=== PATIENT | female | born 1985 | race American Indian/Alaskan Native ===

== ENCOUNTER 2019-09-06 09:10 | Emergency (ER) | payer MEDICAID ==
[2019-09-06 09:48] VITALS: BP 116/76; PULSE 96
[2019-09-06] MEDS ORDERED: Sodium Chloride 0.9% 10 ML Syringe FLUSH PRN (10:22)
[2019-09-06] MEDS ORDERED: Diphtheria,Pertussis(Acell),Tetanus Vaccine 0.5 ML SDV IM ONE (10:25)
--- NOTE | 2019-09-06 10:28 | EDM.PDOC ---
ED HPI GENERAL MEDICAL PROBLEM - General Chief Complaint: Lower Extremity Injury/Pain Stated Complaint: R FOOT INJURY Time Seen by Provider: 09/06/19 10:22 Source of Information: Reports: Patient History Limitations: Reports: No Limitations - History of Present Illness INITIAL COMMENTS - FREE TEXT/NARRATIVE: Patient was fishing in [place] on 09/03/19 while wearing flip flops. She fell into the water, twisting her right ankle, and scraping her right leg and ankle on concrete in the process. She developed mild right lateral ankle pain and swelling immediately after the fall. Then on 09/05/19 developed increased swelling, redness and pain to the right lateral ankle and right lower leg. No prior h/o Diabetes. Denies fevers or chills. Last Tetanus booster unknown. Onset Date: 09/03/19 Location: Reports: Lower Extremity, Right Quality: Reports: Ache Severity: Moderate Improves with: Reports: None Worsens with: Reports: Movement (and weight bearing) Associated Symptoms: Reports: No Other Symptoms right ankle/foot/yoder' Pain Score (Numeric/FACES): 9 - Related Data Allergies Allergy/AdvReac Type Severity Reaction Status Date / Time No Known Allergies Allergy Verified 08/19/14 07:53 Home Meds: Home Meds Amoxicillin/Potassium Clav [Augmentin 875-125 Tablet] 1 each PO BID #20 tablet 09/06/19 [Rx] Past Medical History - Past Health History Medical/Surgical History: Denies Medical/Surgical History Social & Family History - Family History Family Medical History: Noncontributory - Tobacco Use Smoking Status *Q: Never Smoker - Caffeine Use Caffeine Use: Reports: Soda - Recreational Drug Use Recreational Drug Use: No Review of Systems - Review of Systems Review Of Systems: Comprehensive ROS is negative, except as noted in HPI. ED EXAM, GENERAL - Physical Exam Exam: See Below Exam Limited By: No Limitations General Appearance: Alert, WD/WN, No Apparent Distress Nose: Normal Inspection Throat/Mouth: No Airway Compromise Head: Atraumatic, Normocephalic Neck: Full Range of Motion Respiratory/Chest: No Respiratory Distress Peripheral Pulses: 2+: Dorsalis Pedis (R) Extremities: Other (right lateral malleolus swelling and tenderness) Neurological: Alert, Normal Cognition Psychiatric: Normal Affect, Normal Mood Skin Exam: Other (Draining bulla right lateral ankle with surrounding erythema and warmth. Erythema and warmth to right anterior lower leg) Course - Vital Signs Last Recorded V/S: Last Vital Signs Temp 36.4 C 09/06/19 09:10 Pulse 96 09/06/19 09:10 Resp 14 09/06/19 09:10 BP 116/76 09/06/19 09:10 Pulse Ox 98 09/06/19 09:10 - Orders/Labs/Meds Orders: Active Orders 24 hr Category Date Time Status Vaccines to be Administered [RC] PER UNIT ROUTINE Care 09/06/19 10:25 Active Foot Comp Min 3V Rt [CR] Stat Exams 09/06/19 09:59 Taken Tibia Fibula Rt [CR] Stat Exams 09/06/19 09:44 Taken CULTURE ROUTINE + SMEAR [RM] Stat Lab 09/06/19 10:15 Received Sodium Chloride 0.9% [Saline Flush] Med 09/06/19 10:22 Active 10 ml FLUSH ASDIRECTED PRN Vancomycin/Dextrose 5%-Water [Vancomycin 1 GM/200 ML in Med 09/06/19 11:00 Active D5W] 200 ml IV ONETIME Saline Lock Insert [OM.PC] Routine Oth 09/06/19 10:22 Ordered Medication Orders Vancomycin HCl (Vancomycin 1 Gm/200 Ml In D5w) 200 mls @ 200 mls/hr IV ONETIME ONE Stop: 09/06/19 11:59 Last Admin: 09/06/19 10:57 Dose: 200 mls/hr Sodium Chloride (Saline Flush) 10 ml FLUSH ASDIRECTED PRN PRN Reason: Keep Vein Open Labs: Laboratory Tests 09/06/19 09/06/19 Range/Units 10:36 10:36 WBC 11.2 (4.5-12.0) X10-3/uL RBC 4.50 (3.23-5.20) x10(6)uL Hgb 12.5 (11.5-15.5) g/dL Hct 38.7 D (30.0-51.3) % MCV 85.9 (80-96) fL MCH 27.8 (27.7-33.6) pg MCHC 32.4 (32.2-35.4) g/dL RDW 16.6 H (11.5-15.5) % Plt Count 277 (125-369) X10(3)uL MPV 7.0 L (7.4-10.4) fL Add Manual Diff Yes Neutrophils % (Manual) 83 H (46-82) % Lymphocytes % (Manual) 13 (13-37) % Monocytes % (Manual) 4 (4-12) % Anisocytosis Few Sodium 136 (135-145) mmol/L Potassium 3.9 (3.5-5.3) mmol/L Chloride 102 (100-110) mmol/L Carbon Dioxide 21 (21-32) mmol/L BUN 7 (7-18) mg/dL Creatinine 0.6 (0.55-1.02) mg/dL Est Cr Clr Drug Dosing 109.29 mL/min Estimated GFR (MDRD) > 60 (>60) BUN/Creatinine Ratio 11.7 (9-20) Glucose 116 (80-116) mg/dL Calcium 8.4 L (8.6-10.2) mg/dL Meds: Medications Generic Name Dose Route Start Last Admin Trade Name Freq PRN Reason Stop Dose Admin Vancomycin HCl 200 mls @ 200 mls/hr 09/06/19 11:00 09/06/19 10:57 Vancomycin 1 Gm/200 Ml In D5w IV 09/06/19 11:59 200 mls/hr ONETIME ONE Administration Sodium Chloride 10 ml 09/06/19 10:22 Saline Flush FLUSH ASDIRECTED PRN Keep Vein Open Discontinued Medications Generic Name Dose Route Start Last Admin Trade Name Freq PRN Reason Stop Dose Admin Amoxicillin/Clavulanate Potassium 1 tab 09/06/19 11:04 Augmentin 875 Mg/125 Mg PO 09/06/19 11:05 ONETIME ONE Diphtheria/Tetanus/Acell Pertussis 0.5 ml 09/06/19 10:25 09/06/19 10:56 Adacel IM 09/06/19 10:26 0.5 ml .ONCE ONE Administration Ibuprofen 600 mg 09/06/19 10:43 09/06/19 10:56 Motrin PO 09/06/19 10:44 600 mg ONETIME ONE Administration - Radiology Interpretation Free Text/Narrative:: Right Tib-Fib and Foot Xray: No fracture or dislocation, no radiopaque foreign body or subcutaneous gas. (ED provider interpretation) Departure - Departure Time of Disposition: 11:37 Disposition: Home, Self-Care 01 Condition: Good Clinical Impression: Right ankle sprain Qualifiers: Encounter type: initial encounter Involved ligament of ankle: unspecified ligament Qualified Code(s): S93.401A - Sprain of unspecified ligament of right ankle, initial encounter Cellulitis Qualifiers: Site of cellulitis: extremity Site of cellulitis of extremity: lower extremity Laterality: right Qualified Code(s): L03.115 - Cellulitis of right lower limb - Discharge Information *PRESCRIPTION DRUG MONITORING PROGRAM REVIEWED*: No *COPY OF PRESCRIPTION DRUG MONITORING REPORT IN PATIENT MITA: Not Applicable Prescriptions: Amoxicillin/Potassium Clav [Augmentin 875-125 Tablet] 1 each PO BID #20 tablet Instructions: Crutch Use, Adult, [id number], Cellulitis, Adult, [id number] Referrals: [place] Brown PROTE[facility] CHEMIST [Primary Care Provider] - 2 Days Forms: ED Department Discharge Additional Instructions: Fill the Augmentin prescription at [facility] and take as directed. You may also take OTC Ibuprofen as needed for pain. Weight bear as tolerated. Follow up with your primary physician in 2 days. Return to the ER if symptoms worsen. Sepsis Event Note - Evaluation Sepsis Screening Result: No Definite Risk - Focused Exam Vital Signs: Vital Signs Temp Pulse Resp BP Pulse Ox 09/06/19 09:10 36.4 C 96 14 116/76 98 Date Exam was Performed: 09/06/19 Time Exam was Performed: 11:35 - My Orders Last 24 Hours: My Active Orders 09/06/19 09:44 Tibia Fibula Rt [CR] Stat 09/06/19 09:59 Foot Comp Min 3V Rt [CR] Stat 09/06/19 10:15 CULTURE ROUTINE + SMEAR [RM] Stat 09/06/19 10:22 Sodium Chloride 0.9% [Saline Flush] 10 ml FLUSH ASDIRECTED PRN Saline Lock Insert [OM.PC] Routine 09/06/19 10:25 Vaccines to be Administered [RC] PER UNIT ROUTINE 09/06/19 11:00 Vancomycin/Dextrose 5%-Water [Vancomycin 1 GM/200 ML in D5W] 200 ml IV ONETIME - Assessment/Plan Last 24 Hours: My Active Orders 09/06/19 09:44 Tibia Fibula Rt [CR] Stat 09/06/19 09:59 Foot Comp Min 3V Rt [CR] Stat 09/06/19 10:15 CULTURE ROUTINE + SMEAR [RM] Stat 09/06/19 10:22 Sodium Chloride 0.9% [Saline Flush] 10 ml FLUSH ASDIRECTED PRN Saline Lock Insert [OM.PC] Routine 09/06/19 10:25 Vaccines to be Administered [RC] PER UNIT ROUTINE 09/06/19 11:00 Vancomycin/Dextrose 5%-Water [Vancomycin 1 GM/200 ML in D5W] 200 ml IV ONETIME
[2019-09-06] MEDS ORDERED: Ibuprofen 600 MG Tab PO ONE (10:43)
[2019-09-06] MEDS ORDERED: Vancomycin/Dextrose 5%-Water 200 ML IV ONE (11:00)
[2019-09-06] MEDS ORDERED: Amoxicillin/Clavulanate K 875-125 MG Tab PO ONE (11:04)
[2019-09-06] MEDS ORDERED: Bacitracin Oint 1 GM U/D Packet TOP ONE (11:36)
--- NOTE | 2019-09-06 11:41 | CR ---
INDICATION: Fall. Pain above ankle. RIGHT TIB/FIB: Frontal and lateral views of the right tibia and fibula reveal soft tissue swelling overlying the malleoli, especially the lateral. However, a fracture/dislocation or other significant bone or joint abnormality, was not identified. If occult bony abnormality is suspected clinically - if symptoms persist, re- examination in 10-14 days may be helpful. MTDD
--- NOTE | 2019-09-06 14:11 | CR ---
INDICATION: Fall, twisted, pain medially. RIGHT FOOT: Three views of the right foot revealed no evidence of a fracture, dislocation, or other significant appearing bone or joint abnormality. If symptoms persist - if occult fracture site is suspected clinically, re- examination in 10-14 days may be helpful. MTDD
== END 2019-09-06 12:17 | disposition home or self-care (01) ==
LOC: FB.ED 09:10
DX: S93.401A Sprain of unspecified ligament of right ankle, initial encounter (principal); L03.115 Cellulitis of right lower limb; Z23 Encounter for immunization; X50.1XXA Overexertion from prolonged static or awkward postures, initial encounter
CPT/HCPCS: 73590; 73630; 80048; 85025; 87070; 87077; 87205; 90471; 90715; 96365; 96366; 99284; A9270; J3370

== ENCOUNTER 2020-06-10 16:38 | Emergency (ER) | payer MEDICAID ==
[2020-06-10] MEDS ORDERED: Sodium Chloride 0.9% 10 ML Syringe FLUSH PRN (16:53)
[2020-06-10] MEDS ORDERED: Adenosine 6 MG/2 ML SDV IVPUSH ONE (16:56)
[2020-06-10] MEDS ORDERED: Sodium Chloride 0.9% 1,000 ML IV SCH (17:00)
[2020-06-10] MEDS ORDERED: Metoprolol Tartrate 25 MG Tab PO STA ×2 (17:09→18:00)
[2020-06-10] MEDS ORDERED: LORazepam 2 MG/ML SDV IVPUSH STA (17:09)
[2020-06-10 17:21] VITALS: PULSE 109
[2020-06-10 18:08] VITALS: BP 117/83
--- NOTE | 2020-06-10 18:27 | EDM.PDOC ---
ED HPI GENERAL MEDICAL PROBLEM - General Chief Complaint: Cardiovascular Problem Stated Complaint: SOB,HEART RACING Time Seen by Provider: 06/10/20 16:40 Source of Information: Reports: Patient History Limitations: Reports: No Limitations - History of Present Illness INITIAL COMMENTS - FREE TEXT/NARRATIVE: Patient presented to the ED because palpitations, dyspnea which started at about 4 pm. There is no N/V/D. there is no fever,chills or cough and cold symptoms. She mentioned that she has been under a lot of stress recently due to the of her boyfriend. Denies any recent alcohol or street drug use. - Related Data Allergies Allergy/AdvReac Type Severity Reaction Status Date / Time No Known Allergies Allergy Verified 06/10/20 16:55 Home Meds: Home Meds Amoxicillin/Potassium Clav [Augmentin 875-125 Tablet] 1 each PO BID #20 tablet 09/06/19 [Rx] Past Medical History - Past Health History Medical/Surgical History: Denies Medical/Surgical History Social & Family History - Family History Family Medical History: No Pertinent Family History - Caffeine Use Caffeine Use: Reports: Soda ED ROS GENERAL - Review of Systems Review Of Systems: See Below Constitutional: Reports: No Symptoms HEENT: Reports: No Symptoms Respiratory: Reports: No Symptoms Cardiovascular: Reports: Chest Pain, Palpitations Endocrine: Reports: No Symptoms GI/Abdominal: Reports: No Symptoms : Reports: No Symptoms Musculoskeletal: Reports: No Symptoms Skin: Reports: No Symptoms Neurological: Reports: No Symptoms Psychiatric: Reports: No Symptoms ED EXAM, GENERAL - Physical Exam Exam: See Below Exam Limited By: No Limitations General Appearance: Alert, No Apparent Distress Ears: Normal External Exam, Normal Canal Nose: Normal Inspection, Normal Mucosa, No Blood Throat/Mouth: Normal Inspection Head: Atraumatic, Normocephalic Neck: Normal Inspection, Supple, Non-Tender, Full Range of Motion Respiratory/Chest: No Respiratory Distress, Lungs Clear, Normal Breath Sounds, No Accessory Muscle Use, Chest Non-Tender Cardiovascular: Normal Peripheral Pulses, No Edema, No Gallop, Tachycardia GI/Abdominal: Normal Bowel Sounds, Soft, Non-Tender, No Organomegaly Back Exam: Normal Inspection, Full Range of Motion Extremities: Normal Inspection, Normal Range of Motion, Non-Tender Neurological: Alert, Oriented, CN II-XII Intact, Normal Cognition, Normal Gait Course - Vital Signs Text/Narrative:: Labs/EKG was discussed with patient Adenosine 6 mg IV x1 Metoprolol tartrate 25 mg po x2 doses Ativan 1 mg IV Last Recorded V/S: Last Vital Signs Temp 36.5 C 06/10/20 16:38 Pulse 109 H 06/10/20 18:08 Resp 24 H 06/10/20 16:38 BP 117/83 06/10/20 18:08 Pulse Ox 99 06/10/20 16:38 - Orders/Labs/Meds Orders: Active Orders 24 hr Category Date Time Status EKG Documentation Completion [RC] ASDIRECTED Care 06/10/20 17:11 Active Sodium Chloride 0.9% [Normal Saline] 1,000 ml Med 06/10/20 17:00 Active IV ASDIRECTED Sodium Chloride 0.9% [Saline Flush] Med 06/10/20 16:53 Active 10 ml FLUSH ASDIRECTED PRN Saline Lock Insert [OM.PC] Routine Oth 06/10/20 16:53 Ordered EKG 12 Lead [EK] Routine Ther 06/10/20 17:11 Ordered Medication Orders Sodium Chloride (Normal Saline) 1,000 mls @ 999 mls/hr IV ASDIRECTED ALEJANDRINA Last Admin: 06/10/20 16:55 Dose: 999 mls/hr Documented by: POP Sodium Chloride (Saline Flush) 10 ml FLUSH ASDIRECTED PRN PRN Reason: Keep Vein Open Last Admin: 06/10/20 17:00 Dose: 10 ml Documented by: KAVON Labs: Laboratory Tests 06/10/20 06/10/20 06/10/20 Range/Units 17:10 17:10 17:10 Sodium 142 (135-145) mmol/L Potassium 3.7 (3.5-5.3) mmol/L Chloride 106 (100-110) mmol/L Carbon Dioxide 21 (21-32) mmol/L BUN 7 (7-18) mg/dL Creatinine 0.8 (0.55-1.02) mg/dL Est Cr Clr Drug Dosing 84.76 mL/min Estimated GFR (MDRD) > 60 (>60) BUN/Creatinine Ratio 8.8 L (9-20) Glucose 161 H (80-116) mg/dL Calcium 8.1 L (8.6-10.2) mg/dL Magnesium 1.8 (1.8-2.5) mg/dL Total Bilirubin 0.7 (0.1-1.3) mg/dL AST 140 H (5-25) IU/L ALT 121 H (12-36) U/L Alkaline Phosphatase 114 H (56-112) IU/L Troponin I 4.2 (4.0-60.3) pg/mL NT-Pro-B Natriuret Pep 13 (<=125) pg/mL Total Protein 7.1 (6.0-8.0) g/dL Albumin 3.7 (3.5-5.2) g/dL Globulin 3.4 g/dL Albumin/Globulin Ratio 1.1 Meds: Medications Generic Name Dose Route Start Last Admin Trade Name Freq PRN Reason Stop Dose Admin Sodium Chloride 1,000 mls @ 999 mls/hr 06/10/20 17:00 06/10/20 16:55 Normal Saline IV 999 mls/hr ASDIRECTED ALEJANDRINA Administration Sodium Chloride 10 ml 06/10/20 16:53 06/10/20 17:00 Saline Flush FLUSH 10 ml ASDIRECTED PRN Administration Keep Vein Open Discontinued Medications Generic Name Dose Route Start Last Admin Trade Name Freq PRN Reason Stop Dose Admin Adenosine 6 mg 06/10/20 16:56 06/10/20 17:01 Adenocard IVPUSH 06/10/20 16:57 6 mg NOW ONE Administration Lorazepam 1 mg 06/10/20 17:09 06/10/20 17:23 Ativan IVPUSH 06/10/20 17:10 1 mg NOW STA Administration Metoprolol Tartrate 25 mg 06/10/20 17:09 06/10/20 17:20 Lopressor PO 06/10/20 17:10 25 mg NOW STA Administration Metoprolol Tartrate 25 mg 06/10/20 18:00 06/10/20 18:08 Lopressor PO 06/10/20 18:01 25 mg NOW STA Administration Departure - Departure Time of Disposition: 16:30 Disposition: Home, Self-Care 01 Condition: Good Clinical Impression: SVT (supraventricular tachycardia) Instructions: Supraventricular Tachycardia, Adult, [id number] Forms: ED Department Discharge Additional Instructions: Please read discharge instructions on SVT(supraventricular tachycardia) Rest foe the Night Take your alprazolam as directed Sepsis Event Note (ED) - Evaluation Sepsis Screening Result: No Definite Risk - Focused Exam Vital Signs: Vital Signs Temp Pulse Pulse Resp BP BP Pulse Ox 06/10/20 18:08 109 H 117/83 06/10/20 17:20 109 H 124/75 06/10/20 16:38 36.5 C 175 H 24 H 112/59 L 99 - My Orders Last 24 Hours: My Active Orders 06/10/20 16:53 Sodium Chloride 0.9% [Saline Flush] 10 ml FLUSH ASDIRECTED PRN Saline Lock Insert [OM.PC] Routine 06/10/20 17:00 Sodium Chloride 0.9% [Normal Saline] 1,000 ml IV ASDIRECTED 06/10/20 17:11 EKG Documentation Completion [RC] ASDIRECTED EKG 12 Lead [EK] Routine - Assessment/Plan Last 24 Hours: My Active Orders 06/10/20 16:53 Sodium Chloride 0.9% [Saline Flush] 10 ml FLUSH ASDIRECTED PRN Saline Lock Insert [OM.PC] Routine 06/10/20 17:00 Sodium Chloride 0.9% [Normal Saline] 1,000 ml IV ASDIRECTED 06/10/20 17:11 EKG Documentation Completion [RC] ASDIRECTED EKG 12 Lead [EK] Routine
== END 2020-06-10 19:46 | disposition home or self-care (01) ==
LOC: FB.ED 16:38
DX: I47.1 Supraventricular tachycardia (principal)
CPT/HCPCS: 36415; 80053; 83735; 83880; 84484; 93005; 96374; 96375; 99285-25; A9270-GY; J0153; J2060; J7030

== ENCOUNTER 2020-08-25 22:50 | Emergency (ER) | payer MEDICAID ==
[2020-08-25] MEDS ORDERED: Adenosine 6 MG/2 ML SDV IVPUSH ONE (23:05)
[2020-08-25] MEDS ORDERED: Sodium Chloride 0.9% 1,000 ML IV ONE (23:23)
[2020-08-26] MEDS ORDERED: Potassium Chloride 20 MEQ Tab.ER PO ONE (00:19)
[2020-08-26] MEDS ORDERED: Atenolol 25 MG Tab PO ONE (02:45)
--- NOTE | 2020-08-26 02:53 | EDM.PDOC ---
ED HPI GENERAL MEDICAL PROBLEM - General Chief Complaint: Cardiovascular Problem Stated Complaint: RACING HEART Time Seen by Provider: 08/25/20 23:00 Source of Information: Reports: Patient History Limitations: Reports: No Limitations - History of Present Illness INITIAL COMMENTS - FREE TEXT/NARRATIVE: c/o SVT h/o SVT once 4m ago tonight was driving back to local area and had excess caffeine denies street drugs had palpitations with racing heart, made it difficult to drive no CP drove to ED no f/c/d, no cough/sob - Related Data Allergies Allergy/AdvReac Type Severity Reaction Status Date / Time No Known Allergies Allergy Verified 08/25/20 23:18 Home Meds: Home Meds ALPRAZolam [Xanax] 0.25 mg PO TID PRN 08/25/20 [History] busPIRone [Buspar] 10 mg PO BID 08/25/20 [History] atenoloL [Atenolol] 25 mg PO DAILY #30 tablet 08/26/20 [Rx] Past Medical History - Past Health History Medical/Surgical History: Denies Medical/Surgical History Cardiovascular History: Reports: Arrhythmia, Other (See Below) Other Cardiovascular History: SVT Genitourinary History: Reports: None ENDOCRINOLOGY NURSE History: Reports: Other ENDOCRINOLOGY NURSE History: [id number] Neurological History: Reports: Migraines Psychiatric History: Reports: Anxiety, Depression, Panic Attack - Infectious Disease History Infectious Disease History: Reports: Chicken Pox, Novel Coronavirus - Past Surgical History Female Surgical History: Reports: Section Other Female Surgeries/Procedures: CS x 2 Social & Family History - Family History Family Medical History: No Pertinent Family History - Tobacco Use Tobacco Use Status *Q: Current Some Day Tobacco User Years of Tobacco use: 15 Packs/Tins Daily: 0.2 - Caffeine Use Caffeine Use: Reports: Coffee, Energy Drinks, Soda - Alcohol Use Days Per Week of Alcohol Use: 1 Number of Drinks Per Day: 6 Total Drinks Per Week: 6 - Recreational Drug Use Recreational Drug Use: No ED ROS GENERAL - Review of Systems Review Of Systems: See Below Constitutional: Reports: No Symptoms HEENT: Reports: No Symptoms Respiratory: Reports: No Symptoms. Denies: Shortness of Breath Cardiovascular: Reports: Palpitations. Denies: Chest Pain Endocrine: Reports: No Symptoms GI/Abdominal: Reports: No Symptoms : Reports: No Symptoms Musculoskeletal: Reports: No Symptoms Skin: Reports: No Symptoms Neurological: Reports: No Symptoms Psychiatric: Reports: No Symptoms Hematologic/Lymphatic: Reports: No Symptoms Immunologic: Reports: No Symptoms ED EXAM, GENERAL - Physical Exam Exam: See Below Exam Limited By: No Limitations General Appearance: Alert, WD/WN, No Apparent Distress Nose: Normal Inspection Throat/Mouth: Normal Inspection Head: Atraumatic Neck: Normal Inspection, Supple, Non-Tender Respiratory/Chest: No Respiratory Distress, Lungs Clear, Chest Non-Tender Cardiovascular: Regular Rate, Rhythm, No Murmur, Tachycardia GI/Abdominal: Soft, Non-Tender Back Exam: Normal Inspection, Full Range of Motion Extremities: Normal Inspection, Normal Range of Motion, Non-Tender, No Pedal Edema Neurological: Alert, Oriented, CN II-XII Intact, Normal Cognition, No M otor/Sensory Deficits Psychiatric: Anxious Skin Exam: Warm, Dry, Intact, Normal Color, No Rash Lymphatic: No Adenopathy Course - Vital Signs Last Recorded V/S: Last Vital Signs Temp 36.5 C 08/25/20 22:50 Pulse 104 H 08/26/20 03:07 Resp 17 08/25/20 23:00 BP 119/72 08/26/20 03:07 Pulse Ox 95 08/25/20 23:00 - Orders/Labs/Meds Orders: Active Orders 24 hr Category Date Time Status EKG 12 Lead [EK] Routine Ther 08/25/20 23:05 Ordered Labs: Laboratory Tests 08/25/20 08/25/20 08/25/20 Range/Units 23:10 23:10 23:10 WBC 10.0 (3.0-10.3) x10-3/uL RBC 4.83 (3.60-5.20) x10(6)uL Hgb 14.2 (11.4-15.5) g/dL Hct 43.3 (34.2-48.2) % MCV 89.6 (76.7-100.5) fL MCH 29.4 (23.9-33.9) pg MCHC 32.8 (31.9-34.8) g/dL RDW 14.3 (12.3-16.5) % Plt Count 261 (151-488) x10(3)uL MPV 7.5 (7.1-12.4) fL Neut % (Auto) 58.4 (30.8-76.2) % Lymph % (Auto) 30.5 (18.4-52.1) % Hubbard % (Auto) 7.6 (4.4-15.7) % Eos % (Auto) 2.8 (0.6-8.1) % Baso % (Auto) 0.7 (0.2-1.5) % Neut # (Auto) 5.8 (1.5-6.3) x10-3/uL Lymph # (Auto) 3.0 (1.0-4.4) x10-3/uL Hubbard # (Auto) 0.8 (0.3-1.0) x10-3/uL Eos # (Auto) 0.3 (0.0-0.8) x10-3/uL Baso # (Auto) 0.1 (0.0-0.1) x10-3/uL Sodium 141 (135-145) mmol/L Potassium 3.1 L (3.5-5.3) mmol/L Chloride 103 (100-110) mmol/L Carbon Dioxide 23 (21-32) mmol/L BUN 5 L (7-18) mg/dL Creatinine 0.7 (0.55-1.02) mg/dL Est Cr Clr Drug Dosing TNP Estimated GFR (MDRD) > 60 (>60) BUN/Creatinine Ratio 7.1 L (9-20) Glucose 118 H (80-116) mg/dL Calcium 8.2 L (8.6-10.2) mg/dL Magnesium (1.8-2.5) mg/dL Total Bilirubin 0.5 (0.1-1.3) mg/dL AST 57 H D (5-25) IU/L ALT 61 H D (12-36) U/L Alkaline Phosphatase 112 (56-112) IU/L Troponin I 8.3 (4.0-60.3) pg/mL C-Reactive Protein < 0.2 L (0.5-0.9) mg/dL Total Protein 7.6 (6.0-8.0) g/dL Albumin 3.7 (3.5-5.2) g/dL Globulin 3.9 g/dL Albumin/Globulin Ratio 1.0 Urine Color (YELLOW) Urine Appearance (CLEAR) Urine pH (5.0-6.5) Ur Specific Dexter (1.010-1.025) Urine Protein (NEGATIVE) mg/dL Urine Glucose (UA) (NORMAL) mg/dL Urine Ketones (NEGATIVE) mg/dL Urine Occult Blood (NEGATIVE) Urine Nitrite (NEGATIVE) Urine Bilirubin (NEGATIVE) Urine Urobilinogen (NEGATIVE) mg/dL Ur Leukocyte Esterase (NEGATIVE) Urine RBC (0-5) Urine WBC (0-5) Ur Squamous Epith Cells (NS,R,O) Urine Bacteria (NS) Urine Opiates Screen (NEGATIVE) Ur Oxycodone Screen (NEGATIVE) Ur Propoxyphene Screen (NEGATIVE) Ur Barbituates Screen (NEGATIVE) Ur Tricyclics Screen (NEGATIVE) Ur Phencyclidine Scrn (NEGATIVE) Ur Amphetamine Screen (NEGATIVE) Urine MDMA Screen (NEGATIVE) U Benzodiazepines Scrn (NEGATIVE) U Cocaine Metab Screen (NEGATIVE) U Marijuana (THC) Screen (NEGATIVE) Group A Strep (PCR) (NOT DETECT) 08/26/20 08/26/20 08/26/20 Range/Units 00:25 01:20 01:20 WBC (3.0-10.3) x10-3/uL RBC (3.60-5.20) x10(6)uL Hgb (11.4-15.5) g/dL Hct (34.2-48.2) % MCV (76.7-100.5) fL MCH (23.9-33.9) pg MCHC (31.9-34.8) g/dL RDW (12.3-16.5) % Plt Count (151-488) x10(3)uL MPV (7.1-12.4) fL Neut % (Auto) (30.8-76.2) % Lymph % (Auto) (18.4-52.1) % Hubbard % (Auto) (4.4-15.7) % Eos % (Auto) (0.6-8.1) % Baso % (Auto) (0.2-1.5) % Neut # (Auto) (1.5-6.3) x10-3/uL Lymph # (Auto) (1.0-4.4) x10-3/uL Hubbard # (Auto) (0.3-1.0) x10-3/uL Eos # (Auto) (0.0-0.8) x10-3/uL Baso # (Auto) (0.0-0.1) x10-3/uL Sodium (135-145) mmol/L Potassium (3.5-5.3) mmol/L Chloride (100-110) mmol/L Carbon Dioxide (21-32) mmol/L BUN (7-18) mg/dL Creatinine (0.55-1.02) mg/dL Est Cr Clr Drug Dosing Estimated GFR (MDRD) (>60) BUN/Creatinine Ratio (9-20) Glucose (80-116) mg/dL Calcium (8.6-10.2) mg/dL Magnesium 1.9 (1.8-2.5) mg/dL Total Bilirubin (0.1-1.3) mg/dL AST (5-25) IU/L ALT (12-36) U/L Alkaline Phosphatase (56-112) IU/L Troponin I (4.0-60.3) pg/mL C-Reactive Protein (0.5-0.9) mg/dL Total Protein (6.0-8.0) g/dL Albumin (3.5-5.2) g/dL Globulin g/dL Albumin/Globulin Ratio Urine Color Red (YELLOW) Urine Appearance Slightly cloudy (CLEAR) Urine pH 6.0 (5.0-6.5) Ur Specific Dexter 1.020 (1.010-1.025) Urine Protein Trace (NEGATIVE) mg/dL Urine Glucose (UA) Normal (NORMAL) mg/dL Urine Ketones Negative (NEGATIVE) mg/dL Urine Occult Blood Large H (NEGATIVE) Urine Nitrite Negative (NEGATIVE) Urine Bilirubin Negative (NEGATIVE) Urine Urobilinogen Normal (NEGATIVE) mg/dL Ur Leukocyte Esterase Negative (NEGATIVE) Urine RBC 75-100 H (0-5) Urine WBC 0-5 (0-5) Ur Squamous Epith Cells Few H (NS,R,O) Urine Bacteria Few H (NS) Urine Opiates Screen Negative (NEGATIVE) Ur Oxycodone Screen Negative (NEGATIVE) Ur Propoxyphene Screen Negative (NEGATIVE) Ur Barbituates Screen Negative (NEGATIVE) Ur Tricyclics Screen Negative (NEGATIVE) Ur Phencyclidine Scrn Negative (NEGATIVE) Ur Amphetamine Screen Negative (NEGATIVE) Urine MDMA Screen Negative (NEGATIVE) U Benzodiazepines Scrn Negative (NEGATIVE) U Cocaine Metab Screen Negative (NEGATIVE) U Marijuana (THC) Screen Negative (NEGATIVE) Group A Strep (PCR) (NOT DETECT) 08/26/20 Range/Units 01:55 WBC (3.0-10.3) x10-3/uL RBC (3.60-5.20) x10(6)uL Hgb (11.4-15.5) g/dL Hct (34.2-48.2) % MCV (76.7-100.5) fL MCH (23.9-33.9) pg MCHC (31.9-34.8) g/dL RDW (12.3-16.5) % Plt Count (151-488) x10(3)uL MPV (7.1-12.4) fL Neut % (Auto) (30.8-76.2) % Lymph % (Auto) (18.4-52.1) % Hubbard % (Auto) (4.4-15.7) % Eos % (Auto) (0.6-8.1) % Baso % (Auto) (0.2-1.5) % Neut # (Auto) (1.5-6.3) x10-3/uL Lymph # (Auto) (1.0-4.4) x10-3/uL Hubbard # (Auto) (0.3-1.0) x10-3/uL Eos # (Auto) (0.0-0.8) x10-3/uL Baso # (Auto) (0.0-0.1) x10-3/uL Sodium (135-145) mmol/L Potassium (3.5-5.3) mmol/L Chloride (100-110) mmol/L Carbon Dioxide (21-32) mmol/L BUN (7-18) mg/dL Creatinine (0.55-1.02) mg/dL Est Cr Clr Drug Dosing Estimated GFR (MDRD) (>60) BUN/Creatinine Ratio (9-20) Glucose (80-116) mg/dL Calcium (8.6-10.2) mg/dL Magnesium (1.8-2.5) mg/dL Total Bilirubin (0.1-1.3) mg/dL AST (5-25) IU/L ALT (12-36) U/L Alkaline Phosphatase (56-112) IU/L Troponin I (4.0-60.3) pg/mL C-Reactive Protein (0.5-0.9) mg/dL Total Protein (6.0-8.0) g/dL Albumin (3.5-5.2) g/dL Globulin g/dL Albumin/Globulin Ratio Urine Color (YELLOW) Urine Appearance (CLEAR) Urine pH (5.0-6.5) Ur Specific Dexter (1.010-1.025) Urine Protein (NEGATIVE) mg/dL Urine Glucose (UA) (NORMAL) mg/dL Urine Ketones (NEGATIVE) mg/dL Urine Occult Blood (NEGATIVE) Urine Nitrite (NEGATIVE) Urine Bilirubin (NEGATIVE) Urine Urobilinogen (NEGATIVE) mg/dL Ur Leukocyte Esterase (NEGATIVE) Urine RBC (0-5) Urine WBC (0-5) Ur Squamous Epith Cells (NS,R,O) Urine Bacteria (NS) Urine Opiates Screen (NEGATIVE) Ur Oxycodone Screen (NEGATIVE) Ur Propoxyphene Screen (NEGATIVE) Ur Barbituates Screen (NEGATIVE) Ur Tricyclics Screen (NEGATIVE) Ur Phencyclidine Scrn (NEGATIVE) Ur Amphetamine Screen (NEGATIVE) Urine MDMA Screen (NEGATIVE) U Benzodiazepines Scrn (NEGATIVE) U Cocaine Metab Screen (NEGATIVE) U Marijuana (THC) Screen (NEGATIVE) Group A Strep (PCR) Not detected (NOT DETECT) Meds: Medications Discontinued Medications Generic Name Dose Route Start Last Admin Trade Name Freq PRN Reason Stop Dose Admin Adenosine 6 mg 08/25/20 23:05 08/25/20 23:15 Adenosine 6 Mg/2 Ml Sdv IVPUSH 08/25/20 23:06 6 mg NOW ONE Administration Atenolol 25 mg 08/26/20 02:45 08/26/20 03:07 Atenolol 25 Mg Tab PO 08/26/20 02:46 25 mg ONETIME ONE Administration Sodium Chloride 1,000 mls @ 999 mls/hr 08/25/20 23:23 08/25/20 23:40 Normal Saline IV 08/26/20 00:23 999 mls/hr .BOLUS ONE Administration Potassium Chloride 40 meq 08/26/20 00:19 08/26/20 01:01 Potassium Chloride 20 Meq Tab.Er PO 08/26/20 00:20 40 meq ONETIME ONE Administration - Re-Assessments/Exams Free Text/Narrative Re-Assessment/Exam: 08/26/20 03:17 SVT broke to 126 after 6 mg adenosine IV and then gradually dec'd to 105 over the next 2 hours pt states she drank a Mtn Dew, and extra strong coffee and 2 or 3 sips of an energy drink utox is neg caffeine seems to be the proximate cause of her SVT and ST advised to avoid caffeine to try to prevent recurrence, pt started on atenolol 25 mg daily pending further evaluation by PCP she had a ST, has 4 children with 2 at home, o-p was neck, no cervical LNs, strep was neg 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 To keep the heart from racing, take atenolol 25 mg 1 tab daily. See your doctor in 2-3 days for further evaluation and recommendations. Return to Emergency Department if you feel worse or your heart starts racing again. Sepsis Event Note (ED) - Evaluation Sepsis Screening Result: No Definite Risk - Focused Exam Vital Signs: Vital Signs Temp Pulse Pulse Resp BP BP Pulse Ox 08/26/20 03:07 104 H 119/72 08/25/20 23:00 186 H 17 110/69 95 08/25/20 22:50 36.5 C 197 H 20 137/73 100 - My Orders Last 24 Hours: My Active Orders 08/25/20 23:05 EKG 12 Lead [EK] Routine - Assessment/Plan Last 24 Hours: My Active Orders 08/25/20 23:05 EKG 12 Lead [EK] Routine
[2020-08-26 03:59] VITALS: BP 110/69; PULSE 186
== END 2020-08-26 03:30 | disposition home or self-care (01) ==
LOC: FB.ED 22:50
DX: I47.1 Supraventricular tachycardia (principal); T43.615A Adverse effect of caffeine, initial encounter; Z79.899 Other long term (current) drug therapy; Z72.0 Tobacco use
CPT/HCPCS: 36415; 80053; 80305; 81001; 83735; 84484; 85025; 86140; 87651; 93005; 96374; 99285; A9270; J0153; J7030

== ENCOUNTER 2021-06-02 18:49 | Emergency (ER) | payer MEDICAID ==
[2021-06-02 19:16] VITALS: BP 127/76; PULSE 102
[2021-06-02 20:44] LABS: CORONAVIRUS COVID-19 NAA NEGATIVE (NEGATIVE)
== END 2021-06-02 20:35 | disposition home or self-care (01) ==
LOC: FB.ED 18:49
DX: J20.9 Acute bronchitis, unspecified (principal); Z20.822 Contact with and (suspected) exposure to COVID-19
CPT/HCPCS: 0241U; 99283

== ENCOUNTER 2024-08-18 21:44 | Emergency (ER) | payer SELFPAY ==
[2024-08-18] MEDS ORDERED: Acetaminophen/oxyCODONE 325-5 MG Tab PO ONE (21:45)
[2024-08-18 22:00] VITALS: BP 123/75; PULSE 85
== END 2024-08-18 22:09 | disposition home or self-care (01) ==
LOC: FB.ED 21:44
DX: S62.102A Fracture of unspecified carpal bone, left wrist, initial encounter for closed fracture (principal); Z79.899 Other long term (current) drug therapy; Z86.16 Personal history of COVID-19; X58.XXXA Exposure to other specified factors, initial encounter
CPT/HCPCS: 99283; A9270-GY

== ENCOUNTER 2024-11-20 11:48 | Emergency (ER) | payer MEDICAID ==
[2024-11-20 12:19] LABS: GLUCOSE,URINE NORMAL (NORMAL); OCCULT BLOOD,URINE NEGATIVE (NEGATIVE)
[2024-11-20 12:22] LABS: APPEARANCE,URINE CLEAR (CLEAR)
[2024-11-20 12:25] LABS: SQUAMOUS EPITHELIAL CELLS,UR FEW (NS,R,O)
[2024-11-20 13:39] VITALS: BP 110/58; PULSE 83
== END 2024-11-20 13:10 | disposition home or self-care (01) ==
LOC: FB.ED 11:48
DX: N39.0 Urinary tract infection, site not specified (principal); Z79.899 Other long term (current) drug therapy; Z86.16 Personal history of COVID-19
CPT/HCPCS: 81001; 81025; 99283